=== PATIENT | female | born 1995 | race Hispanic/Latino ===

== ENCOUNTER 2016-12-12 06:01 | Inpatient (IN) | payer MEDICAID ==
[2016-12-12] MEDS: Lactated Ringer's 1,000 ML IV SCH ×2 (06:45→16:32)
[2016-12-12 06:52] VITALS: BMI 41.7
[2016-12-12] MEDS ORDERED: Sodium Citrate/Citric Acid 15 ml Sol PO ONE (06:53)
[2016-12-12] MEDS ORDERED: cefOXitin IV 2 gm in Dextrose 50 ML IVPB ONE ×2 (06:53→09:32)
--- NOTE | 2016-12-12 07:13 | OBADHP ---
Datetime: 12/12/2016 07:10 Admit Comment, IP Provider: t [id number] her for repeat section, no ctxs, vb, lof,+fm. obhx 2 x c/s pmh asthma med pnv all nkd psh c/s soch denies a/p at [id number] section/btl admit to l_d npo/ivf labs cont jacqui and efm skin abxs anthesia awar informed consent taken r/a/b disc Pelvic Type - PN: Adequate Extremities - PN: Normal Abdomen - PN: Normal Back - PN: Normal Breast - PN: Normal Lungs - PN: Normal Heart - PN: Normal Thyroid - PN: Normal Neurologic - PN: Normal HEENT - PN: Normal General - PN: Normal FHR - Baseline A Provider: 120 Contraction Comments Provider: none IP Hx Assessment: The History has been Reviewed and is Current Vital Signs Provider: Reviewed; Within Normal Limits IP Chief Complaint: Scheduled Section NICHD Variability Prov Fetus A: Moderate 6-25bpm NICHD Accel Fetus A IP Provider: [id number] FHR Category Provider Fetus A: Category I Genitourinary Exam: Normal DTRs - PN: Normal EGA AdmitDate IP: 39.0 IP Adm Impression: Term, intrauterine IP Admit Plan: Admit to unit; Initiate Section protocol
[2016-12-12 07:18] LABS: BASO # 0.1 K/uL (0.0-0.2); BASO % 0.7 % (0.0-2.0); EOS # 0.1 K/uL (0.0-0.7); EOS % 0.6 % (0.0-4.0); HEMATOCRIT 28.4 % (34.0-47.0); LYMPH # 2.3 K/uL (1.0-4.3); LYMPH % 19.7 % (20.0-40.0); MEAN CELL VOLUME 73.1 fL (81.0-99.0); MEAN CORPUSCULAR HEMOGLOBIN 23.1 pg (27.0-31.0); MEAN CORPUSCULAR HGB CONC 31.6 g/dL (33.0-37.0); MEAN PLATELET VOLUME 8.7 fL (7.2-11.7); MONO # 0.7 K/uL (0.0-0.8); MONO % 6.3 % (0.0-10.0); NRBC % 0.4 % (0.0-2.0); RED CELL DISTRIBUTION WIDTH 16.6 % (11.5-14.5); WHITE BLOOD COUNT 11.8 K/uL (4.8-10.8)
[2016-12-12 07:25] LABS: RBC URINE 2 /hpf (0-3); URINE BILIRUBIN NEGATIVE (NEGATIVE); URINE BLOOD NEGATIVE (NEGATIVE); URINE COLOR Yellow (YELLOW); URINE GLUCOSE (UA) NORMAL (Normal); URINE KETONE NEGATIVE (NEGATIVE); URINE LEUKOCYTE ESTERASE NEG Leu/uL (Negative); URINE PROTEIN NEGATIVE (NEGATIVE); URINE UROBILINOGEN NORMAL mg/dL (0.2-1.0); WBC URINE 5 /hpf (0-5)
[2016-12-12 07:28] LABS: CHLORIDE 101 mmol/L (98-107); POTASSIUM 3.5 mmol/L (3.6-5.2); SODIUM 135 mmol/L (132-148)
[2016-12-12 07:30] LABS: BILIRUBIN,TOTAL 0.9 mg/dL (0.2-1.3); GFR AFRICAN-AMERICAN > 60
[2016-12-12 07:31] LABS: ALKALINE PHOSPHATASE 85 U/L (38-126); ALT/SGPT 10 U/L (9-52); AST/SGOT 20 U/L (14-36); BLOOD UREA NITROGEN 9 mg/dL (7-17); CALCIUM 8.3 mg/dl (8.6-10.4); CARBON DIOXIDE 20 mmol/L (22-30); GLUCOSE,RANDOM 83 mg/dL (65-105); TOTAL PROTEIN 6.7 g/dL (6.3-8.3)
[2016-12-12] MEDS ORDERED: Bupivacaine 0.125%/FentaNYL 0 ML EPI ONE (07:47)
[2016-12-12] MEDS ORDERED: Morphine 1 mg/ml preservative-free Inj(Duramorph) ONE (07:49)
[2016-12-12] MEDS ORDERED: Oxytocin 20 units in LR 2,000 ML IV ONE (09:32)
[2016-12-12] MEDS ORDERED: Sodium Citrate/Citric Acid 15 ml Sol ONE (09:32)
[2016-12-12] MEDS ORDERED: Naloxone 0.4 mg/ml Inj (Adult) IVP PRN (10:23)
[2016-12-12] MEDS ORDERED: Oxycodone/Acetaminophen 5/325 mg Tab PO PRN (10:32)
--- NOTE | 2016-12-12 10:35 | PCM.SURG1 ---
Surgeon's Initial Post Op Note - Surgeon's Notes Surgeon: dr pride Scientific Database Curator: dr dumas Type of Anesthesia: Spinal Anesthesia Administered By: dr hernandez Pre-Operative Diagnosis: 21 yr at 39weeks previous c/s and btl Operative Findings: see the op reort Post-Operative Diagnosis: same Operation Performed: repeat section and btl Specimen/Specimens Removed: fetus. placente. cord blood Estimated Blood Loss: EBL {In ML}: 700 Blood Products Given: N/A Date of Surgery/Procedure: 12/12/16 Time of Surgery/Procedure: 11:00
[2016-12-12] MEDS ORDERED: Oxytocin 10 Units/ml Inj ONE (10:50)
--- NOTE | 2016-12-12 11:09 | OBDS ---
DELIVERY PERSONNEL Delivery Doctor: Marizol Neil MD Territory Outside Sales Manager: Marcia Diaz RN Anesthesiologist: Mariama Soto MD MATERNAL INFORMATION Delivery Anesthesia: Spinal Medications in Delivery: Pitocin Provider Comments: baby deliverd in [place]. end clean 9/9 no com LABOR SUMMARY EDC: 12/19/2016 00:00 No. Babies in Womb: 1 Labor Anesthesia: Intrathecal LABOR INFORMATION Group B Beta Strep: Negative MEMBRANES Rupture of Membranes: 12/12/2016 10:45 Length of Rupture (hrs): 0.02 Amniotic Fluid Color: Clear Amniotic Fluid Amount: Moderate Amniotic Fluid Odor: Normal STAGES OF LABOR Stage 3 hrs: 0 Stage 3 min: 0 BABY A INFORMATION Infant Delivery Date/Time: 12/12/2016 10:46 Method of Delivery: Born in Route : No : N/A Forceps: N/A Vacuum Extraction: N/A Shoulder Dystocia : No SHOULDER DYSTOCIA BABY A Infant Delivery Date/Time: 12/12/2016 10:46 PRESENTATION/POSITION BABY A Presentation: Cephalic Cephalic Presentation: Vertex Vertex Position: Right Occipital Anterior Breech Presentation: N/A PLACENTA INFORMATION BABY A Placenta Delivery Time : 12/12/2016 10:46 Placenta Method of Delivery: Manual Removal Placenta Status: Delivered SCORES BABY A Heart Rate 1 min: >100 bpm Resp Effort 1 min: Good Cry Reflex Irritability 1 min: Cough or Sneeze or Pulls Away Muscle Tone 1 min: Active Motion Color 1 min: Body [place], Extremities Blue SCORE 1 MIN: 9 Heart Rate 5 min: >100 bpm Resp Effort 5 min: Good Cry Reflex Irritability 5 min: Cough or Sneeze or Pulls Away Muscle Tone 5 min: Active Motion Color 5 min: Body [place], Extremities Blue SCORE 5 MIN: 9 INFORMATION BABY A Gestational Age at Delivery: 39.0 Gestational Status: Term Outcome : Liveborn Condition : Stable Infant Sex: Female IDENTIFICATION/MEDS BABY A ID Band Number: [id number] ID Band Location: Left Leg; Left Arm Sensor Applied: Yes Sensor Number: [id number] Sensor Location : Cord Clamp Vitamin K Given : Not Given Erythromycin Given: Not Given WEIGHT/LENGTH BABY A Birthweight (gms): 3035 Infant Weight (lb): 6 Weight (oz): 11 Length Inches: 19.25 Length cms: 48.9 CORD INFORMATION BABY A No. Cord Vessels: 3 Nuchal Cord : Around Neck x1, Loose Cord Blood Taken: Yes Infant Suction: Mouth; Nose ASSESSMENT BABY A Infant Complications: None Physical Findings at Delivery: Within Normal Limits Infant Respirations: Appears Normal Athletic Shoe Designer/ALS Called : Yes Care By: Oracio Transferred To: [facility]
[2016-12-12] MEDS: Simethicone 80 mg Chewtab PO SCH ×3 (16:34→21:37)
[2016-12-12] MEDS: Oxycodone/Acetaminophen 5/325 mg Tab PO PRN (20:11)
[2016-12-13] MEDS: Lactated Ringer's 1,000 ML IV SCH (00:44)
[2016-12-13] MEDS: Oxycodone/Acetaminophen 5/325 mg Tab PO PRN ×3 (06:43→17:25)
[2016-12-13 07:54] LABS: HEMATOCRIT 28.2 % (34.0-47.0); MEAN CELL VOLUME 73.4 fL (81.0-99.0); MEAN CORPUSCULAR HGB CONC 31.3 g/dL (33.0-37.0); MEAN PLATELET VOLUME 8.4 fL (7.2-11.7); RED CELL DISTRIBUTION WIDTH 17.5 % (11.5-14.5)
[2016-12-13] MEDS: Simethicone 80 mg Chewtab PO SCH ×4 (09:11→22:00)
[2016-12-13] MEDS ORDERED: Bisacodyl 5mg EC Tab PO ONE (10:33)
--- NOTE | 2016-12-13 18:49 | OBPPN ---
Datetime: 12/13/2016 18:30 PP Pain Prov: Within normal limits PP Nausea Prov: Denies PP Flatus Prov: No PP BM Prov: No PP Breasts Prov: Normal PP Heart Prov: Normal PP Lungs Prov: Normal PP Abdomen/Uterus Prov: Normal PP Lochia Prov: Normal PP Vulva/Perineum Prov: Not Done PP CVA Tenderness Prov: Normal PP Extremities Prov: Normal PP C/S Incision Prov: Normal PP Progress Prov: Normal PP Comments Phys Exam Prov: Skin: warm, dry intact HEENT: Full ROM Lungs: CTA bilaterally Cardiac: RRR, normal S1, S2 Abdomen: Obese. (+) BS. Soft. Fundus firm at umbilicus; afua and apapropriately tender, firm. Inci teo with aly - clean, dry intact. Moderate lochia rubra Extremities: no calf tenderness. (+) bilateral lower extremity edema. All other systems reviewed - see HPI PP Impression Prov: Normal progression PP Plan Prov: Continue present management PP Progress Note Prov: Patietn seen and evaluated earlier in the day: received in room [facility] in [facility]. Breast- and bottlefeeding. Ambulating in room to bathroom; voiding - both without difficulty. Denies nausea, vomiting, flatus or BM P.E.:: as above. WD in NAD. Awake, alert, oriented to time, person and place. Stevie ative - POD#1 H/H 8.8/28.2 Assessment: POD#1 21 yo P3, S/P repeat C/S. Afebrile, vital signs stable. Denies headaches, dizzin ess, lightheadedness, chest pain, palpitations or shortness of breath. Clinically stable Plan: 1) Continue present management 2) Encourage ambulation in hallways IP PP Procedures: None
[2016-12-14] MEDS: Oxycodone/Acetaminophen 5/325 mg Tab PO PRN ×3 (07:45→20:01)
[2016-12-14] MEDS: Simethicone 80 mg Chewtab PO SCH ×4 (09:08→21:52)
--- NOTE | 2016-12-14 10:56 | OBPPN ---
Datetime: 12/14/2016 10:49 PP Pain Prov: Within normal limits PP Pain Prov comment: NO COMPLAINTS PP Nausea Prov: Denies PP Flatus Prov: Yes PP BM Prov: No PP Breasts Prov: Normal PP Heart Prov: Normal PP Lungs Prov: Normal PP Abdomen/Uterus Prov: Normal PP Lochia Prov: Normal PP Vulva/Perineum Prov: Normal PP CVA Tenderness Prov: Normal PP Extremities Prov: Normal PP C/S Incision Prov: Normal PP Progress Prov: Normal PP Comments Phys Exam Prov: ABDOMEN: SOFT/ APPROPRIATE INCISIONAL TENDERNESS. GOOD BOWEL SOUNDS. INC ISION C/D/I. PP Impression Prov: Normal progression PP Plan Prov: Continue present management PP Progress Note Prov: STABLE. ANTICIPATE DISCHARGE TOMORROW. IP PP Procedures: None Vital Signs Provider PP: Reviewed; Within Normal Limits Vital Signs Provider Details PP: hGb 8.8G/DL
[2016-12-15] MEDS: Oxycodone/Acetaminophen 5/325 mg Tab PO PRN ×2 (01:35→09:22)
--- NOTE | 2016-12-15 08:31 | OP ---
PROCEDURE DATE: 12/12/2016 PREOPERATIVE DIAGNOSIS: A 21-year-old 3, para 2 at 39 weeks for scheduled repeat se ction and bilateral tubal ligation. As patient is 21 years old, the tubal ligation was not done margret use she is still very young. Dr. Landin was called and a second opinion was obtained and the decis ion was made not to proceed with tubal ligation. SURGEON: Art Neil MD CHILD PROTECTIVE SERVICES SOCIAL WORKER SURGEON: Dr. Vieira, who was present throughout the surgery for retraction, exposure, and pu shing at the time of the delivery. ANESTHESIA: Spinal. ANESTHESIOLOGIST: Dr. David Soto COMPLICATIONS: None. ESTIMATED BLOOD LOSS: 700 mL. PROCEDURE PERFORMED: Repeat section. PROCEDURE: After informed consent was obtained, the patient was brought to the operating room ____, spinal anesthesia was given. When anesthesia was found to be adequate, she was prepped and draped in normal sterile fashion. After that, at the site of the previous scar, skin incision was made with a knife, subcutaneous with a Bovie. The fascia was then incised and extended on both the sides using curved Mejia scissors. The fascia was first at the site of the pubic bone, then at the umbi licus. Rectus muscle was . Then, the peritoneum was lifted up with Allises ____ cut with t he Metzenbaum scissors. We entered the abdominal cavity. Bladder flap was created. Bladder blade w as ____. Lower uterine segment incision was made with a knife ____ both the sides using curved Mejia scissors. Bladder flap was created. Baby was delivered in DAR position. Cord was clamped and ____. Baby was handed to the waiting learning program manager. Placenta delivered manually and uterus exteriorized, cleared of all the clots and debris. Uterine incision was closed using 1-0 Vicryl in locking fashion . Second layer closure with the same stitch. Cul-de-sac was cleared of all the clots and debris. U terus was returned back to abdominal cavity. Gutters were cleared of all the clots and debris. Buffy toneum was closed using 2-0 Vicryl in nonlocking fashion. The muscle was closed using ____ Vicryl in nonlocking fashion. The fascia was closed using ____ fashion. Subcutaneous ____ fashion. Skin was closed using aly. The patient tolerated the procedure well. Laps, sponge, instruments count co rrect x 2. Art Neil MD cc: [id number] TT: 12/12/2016 13:52:04 en
[2016-12-15 08:41] VITALS: BP 119/71; PULSE 96; RESP 18; TEMP 98.4; O2SAT 98
[2016-12-15] MEDS: Simethicone 80 mg Chewtab PO SCH (09:23)
[2016-12-15] MEDS ORDERED: Hydrocortisone 2.5% Rectal Cream(30 gm) PR SCH (10:00)
--- NOTE | 2016-12-15 18:19 | OBPPN ---
Datetime: 12/15/2016 11:40 PP Pain Prov: Within normal limits PP Nausea Prov: Denies PP Flatus Prov: Yes PP BM Prov: Yes PP Breasts Prov: Abnormal PP Heart Prov: Normal PP Lungs Prov: Normal PP Abdomen/Uterus Prov: Normal PP Lochia Prov: Normal PP Vulva/Perineum Prov: Not Done PP CVA Tenderness Prov: Normal PP Extremities Prov: Normal PP C/S Incision Prov: Normal PP Progress Prov: Normal PP Comments Phys Exam Prov: Skin: warm, dry, intact HEENT: full ROM Breasts: pendulous Lungs: CTA bilaterally Cardiac: RRR, normal S1, S2 Abdomen: Obese. Soft. (+) BS. Fundus firm, mobile non tender, 2 FB below umbilicus. Mild lochia ru bra. Incision with aly - clean, dry, intact Extremities: no calf tenderness; cyanosis. Trace bilateral pedal edema All other systems reviewed - per HPI PP Impression Prov: Normal progression PP Plan Prov: Discharge PP Progress Note Prov: Patient received in bed, room 461 - financial planning consultant counseling her re: b reast findings and assessment thereof. exclusively. Denies headaches, lightheadedness, chest pain or palpitations. Ambulating and voiding without difficulty P.E.: as above. Obese in NAD. Awake, alert, oriented to time, person and place. Pleasant and coope rative. Her mother is present - POD#1 H/H noted Assessment: POD#3, 21 yo P3, S/P C/S #3; no BTL, which patient strongly desired. Per patient, cons ent was not taken because "I'm too young"). To this end, contraception options discussed briefly - in teresed in IUD. Afebrile, vital signs stable. Anemia noted; asymptomatic and hemodynamically stable. Breast findings as above, as per financial planning consultant. Patient is clinically stable. Plan: 1) Discharge home 2) See full discharge instructions Vital Signs Provider PP: Reviewed Vital Signs Provider Details PP: Breasts: macromastia
--- NOTE | 2016-12-15 18:21 | OBDCSUM ---
Datetime: 12/15/2016 12:26 Discharged to, Provider: Home Follow up at, Provider: [facility] Disch Instr Activity: Normal activity Disch Instr Diet: Regular Discharge Diagnosis, Provider: Term Delivered Discharge Time: 12/15/2016 12:26 Follow up in weeks, Provider: 12/19/2016 Contraception discussed, Prov: Yes Disch Activity Restrictions: No exercising; No lifting; No driving; Minimize walking; Minimize stair -climbing; No sexual activity; Nothing in vagina - [place], tampons, douche Discharge Diagnosis Prov Other: Status post repeat Caesarean section Anemia Contraception counseling Macromastia Contraception after Delivery: IUD
== END 2016-12-15 14:46 | disposition home or self-care (01) | DRG 370 ==
LOC: C.4D 06:01 → EEVIPCON 06:01 → C.4M 14:35
PROVIDERS: ADMIT Student in an Organized Health Care Education/Training Program; ATTEND Student in an Organized Health Care Education/Training Program
PROC: 10D00Z1 Extraction of Products of Conception, Low, Open Approach (ICD-10-PCS; principal; 2016-12-12)
DX: O34.211 Maternal care for low transverse scar from previous cesarean delivery (principal); O99.02 Anemia complicating childbirth; D64.9 Anemia, unspecified; O69.81X0 Labor and delivery complicated by cord around neck, without compression, not applicable or unspecified; Z53.09 Procedure and treatment not carried out because of other contraindication; Z37.0 Single live birth; Z3A.39 39 weeks gestation of pregnancy